=== PATIENT | female | born 1950 | race Caucasian/White ===

== ENCOUNTER 2016-08-31 11:01 | Day surgery (SDC) | payer MEDICARE, OTHER ==
--- NOTE | ~2016-08-31 | EGD ---
EGD REPORT [facility] [address] [place] [address] NAME: MICKI DONIS : [birth year] STATUS : REG [facility]#: [id number] AGE: 66 ADM/REG DATE : 08/31/16 MR#: [id number] REPORT SERV DATE: 08/31/16 DICTATED BY: HORACIO PRIETO DATE: 08/31/16 REPORT STATUS : Draft [facility] DATE: 08/31/16 Endoscopy Center Patient Name: Micki Donis Date of : 1950 Attending MD: HORACIO PRIETO MD Procedure Date No Time: 08/31/2016 Procedure: Upper GI endoscopy Indications: Iron deficiency anemia, Odynophagia Referring MD: RONALD MATTHEWS MD, ARIADNA ARNOLD Medicines: See the Anesthesia note for documentation of the administered medications Complications: No immediate complications. Procedure: Pre-Anesthesia Assessment: - ASA Grade Assessment: III - A patient with severe systemic disease. After obtaining informed consent, the endoscope was passed under direct vision. Throughout the procedure, the patient's blood pressure, pulse, and oxygen saturations were monitored continuously. The GIF [id number] was introduced through the mouth, and advanced to the second part of duodenum. The upper GI endoscopy was accomplished without difficulty. The patient tolerated the procedure well. Findings: The 2nd part of the duodenum was normal. Biopsies were taken with a cold forceps for histology. Mild inflammation was found in the gastric antrum. Biopsies were taken with a cold forceps for histology. The cardia and gastric fundus were normal on retroflexion. A 5 cm hiatus hernia was present. Multiple focal white patches in esophagus, Biopsies were taken with a cold forceps for histology. Impression: - Normal 2nd part of the duodenum. Biopsied. - Gastritis. Biopsied. - Hiatus hernia. - Multiple focal white patches in esophagus Recommendation: - Patient has a contact number available for emergencies. The signs and symptoms of potential delayed complications were discussed with the patient. Return to normal activities tomorrow. Written discharge instructions were provided to the patient. - Regular diet. EGD REPORT [address] [address] NAME: MICKI DONIS : [birth year] STATUS : [facility] [place] PAT#: [id number] AGE: 66 ADM/REG DATE : 08/31/16 MR#: [id number] REPORT SERV DATE: 08/31/16 DICTATED BY: HORACIO PRIETO DATE: 08/31/16 REPORT STATUS : Draft TRANSCRIBED BY: [employer] DATE: 08/31/16 - Continue present medications. - FOR YOUR BIOPSY RESULTS: Please go to [email or web address] and register to receive your results via the portal. Your biopsy results will be posted there in about 7 to 10 days. IF you do not see result in 10 days, call office. - Continue Protonix and Carafate Call office to schedule colonoscopy Procedure Code(s): --- Professional --- 44841, Esophagogastroduodenoscopy, flexible, transoral; with biopsy, single or multiple Diagnosis Code(s): --- Professional --- K29.70, Gastritis, unspecified, without bleeding K44.9, Diaphragmatic hernia without obstruction or gangrene D50.9, Iron deficiency anemia, unspecified R13.10, Dysphagia, unspecified CPT copyright 2013 [employer]. All rights reserved. The codes documented in this report are preliminary and upon information coder review may be revised to meet current compliance requirements. Horacio Prieto MD HORACIO PRIETO MD 08/31/2016 12:18 PM This report has been signed electronically. Number of Addenda: 0 Note Initiated On: 08/31/2016 12:02 PM Scope Withdrawal Time 0 hours 0 minutes 0 seconds [id number] [place] [id number]
[~2016-08-31 11:01] MED LIST: ARAVA10 PO; ARAVA20 PO; CALGLUCTAB PO; CIMZIA SC; CORAL CALCIUM PO; ENBREL50 MG/M1 SC; FOLIC PO; GENTLE IRON PO; LORTAB 5 PO; NEXIUM20 M1 PO; NEXIUM40 PO; NORCO1 TAB PO; PERCOCET1 TA5 PO; PREDNISOL5 PO; RITUXAN IV; SULFADIAZINE500 MG PO; SULFAZINE500 MG PO; SYN.05 PO; SYN075 PO; TYLENOL PM PO; VITAMIN B-121000 MC1 SL; ZOL100 PO
[2016-08-31 11:22] LABS: BASOPHILS 0.2 %; BASOPHILS ABSOLUTE 0.02 10/3/uL (0.0-0.16); EOSINOPHILS 0.4 %; EOSINOPHILS ABSOLUTE 0.04 10/3/uL (0.0-0.53); HEMOGLOBIN 9.1 g/dL (12.0-16.0); IMMATURE GRANULOCYTES 0.6 %; IMMATURE GRANULOCYTES ABSOLUTE 0.06 10/3/uL (0.0-0.11); LYMPHOCYTES 14.4 %; LYMPHOCYTES ABSOLUTE 1.45 10/3/uL (0.67-4.30); MEAN CORPUS HGB CONC 31.8 g/dL (32.0-36.0); MEAN CORPUSCULAR HEMOGLOB 23.8 pg (26.0-34.0); MONOCYTES 14.2 %; MONOCYTES ABSOLUTE 1.43 10/3/uL (0.21-1.20); NEUTROPHILS 70.2 %; NEUTROPHILS ABSOLUTE 7.04 10/3/uL (2.02-8.40); RED CELL COUNT 3.83 10/6/uL (4.0-5.6)
[2016-08-31 11:27] LABS: HEMATOCRIT 28.6 % (36.0-48.0); MANUAL DIFF NO %; MEAN CORPUSCULAR VOLUME 74.7 fL (80-100); PLATELET COUNT 413 10/3/uL (150-400); RBC DISTRIBUTION WIDTH 17.8 % (12.0-16.0)
[2016-09-20] MEDS ORDERED: EZFE 200200 MG PO (09:54)
[2016-09-20] MEDS ORDERED: PROTONIX PO (09:56)
== END 2016-08-31 23:59 | disposition home or self-care (01) ==
LOC: DMU 11:01
PROVIDERS: Internal Medicine Gastroenterology
PROC: 0DB68ZX Excision of Stomach, Via Natural or Artificial Opening Endoscopic, Diagnostic (ICD-10-PCS; principal; 2016-08-31 12:30)
DX: K20.9 Esophagitis, unspecified (principal); K29.70 Gastritis, unspecified, without bleeding; K44.9 Diaphragmatic hernia without obstruction or gangrene; D50.9 Iron deficiency anemia, unspecified; R13.10 Dysphagia, unspecified; K21.9 Gastro-esophageal reflux disease without esophagitis; M06.9 Rheumatoid arthritis, unspecified; E03.9 Hypothyroidism, unspecified; J44.9 Chronic obstructive pulmonary disease, unspecified; M79.7 Fibromyalgia; Z88.2 Allergy status to sulfonamides; Z88.8 Allergy status to other drugs, medicaments and biological substances; Z79.899 Other long term (current) drug therapy; Z98.890 Other specified postprocedural states; Z90.710 Acquired absence of both cervix and uterus
CPT/HCPCS: 85025; 88305